=== PATIENT | female | born 1970 | race Caucasian/White ===

== ENCOUNTER 2016-10-14 12:48 | Emergency (ER) | payer BC, OTHER ==
[~2016-10-14] VITALS: Ht 165.1 cm; Wt 124.7 kg
[~2016-10-14 12:48] MED LIST: ACETAMINOPHEN-120 ML PO; ALDACTONE100 MG PO; AMBEREN PO; APAP/CODEINE ELI5 M1 PO; ASPIRIN325; AUGMENTIN 875875 M1 PO; B-100 COMPLEX100 MG PO; BACTRIM DS TAB1 EACH PO; CIPROFLOXACIN500 M1 PO; CYANOCOBALAMIN PO; DESYREL50 MG PO; DULCOLAX5 MG PO; ESTRACE0.5 MG PO; FLEXERIL PO; HYALURONIC ACI1 EACH PO; HYDROCODON-ACE1 EAC7 PO; IBUPROFEN 800800 M1 PO; IBUPROFEN200 M2 PO; KEFLEX500 MG PO; LORTAB 5-500 T1 EAC1 PO; MACROBID 100 M100 M1 PO; MULTIVITAMINS PO; NAPROSYN500 MG PO; NOHOMEMEDICATIONS; NORCO 5-325 TA1 EACH PO; PHENERGAN 25 MG25 M1 PO; PHENERGAN 25 MG25 MG PO; PRILOSEC40 MG PO; PROMETHAZINE-C120 ML PO; PROMETHEGAN25 MG RECTAL; PROVENTIL HFA6.7 G1 INH; SELENIUM PO; SENNA S TABLET1 EACH PO; ULTRAM 50MG TAB50 MG PO; VALIUM2 MG PO; VALIUM5 MG PO; ZOFRAN ODT4 MG PO; ZOFRAN4 MG PO; ZPAK PO
[2016-10-14] MEDS ORDERED: LISINOPRIL-HCT1 EACH PO (13:20)
[2016-10-14] MEDS ORDERED: VITAMIN D 5050000 I1 PO (13:21)
[2016-10-14 13:42] LABS: ABSOLUTE NEUTROPHILS 5.2 thou/uL (1.4-8.2); BASOPHILS 0.6 % (0.0-2.0); HEMATOCRIT 36.1 % (37.0-47.0); HEMOGLOBIN 12.6 gm/dL (12.0-15.0); LYMPHOCYTES 25.1 % (24.0-44.0); MCH 31.1 pg (26.0-34.0); MCV 88.9 fL (80.0-100.0); MONOCYTES 8.2 % (1.0-8.0); PLATELET COUNT 170 thou/uL (150-400); POLYS 64.1 % (36.0-66.0); RBC 4.06 mil/uL (4.20-5.00); RDW 12.7 % (10.5-14.5); WBC 8.1 thou/uL (4.0-11.0)
[2016-10-14 13:43] LABS: MANUAL DIFF NO
[2016-10-14 13:50] LABS: CALCIUM 8.7 mg/dL (8.5-10.1); CREATININE 0.8 mg/dL (0.6-1.3); POTASSIUM 4.3 mmol/L (3.5-5.1)
[2016-10-14] MEDS ORDERED: BLEPH-105 ML OPHTHALMIC (14:49)
== END 2016-10-14 15:45 | disposition home or self-care (01) ==
LOC: ER 12:48
PROVIDERS: Physician Assistant
DX: G44.209 Tension-type headache, unspecified, not intractable (principal); H10.89 Other conjunctivitis; E86.0 Dehydration; J02.0 Streptococcal pharyngitis; Z90.710 Acquired absence of both cervix and uterus; Z90.49 Acquired absence of other specified parts of digestive tract; Z98.890 Other specified postprocedural states; Z88.7 Allergy status to serum and vaccine; Z88.6 Allergy status to analgesic agent; Z88.8 Allergy status to other drugs, medicaments and biological substances; F10.99 Alcohol use, unspecified with unspecified alcohol-induced disorder

== ENCOUNTER 2016-12-05 19:46 | Emergency (ER) | payer BC ==
[~2016-12-05] VITALS: Ht 165.1 cm; Wt 127.0 kg
[~2016-12-05 19:46] MED LIST changes: +BLEPH-105 ML OPHTHALMIC; +LISINOPRIL-HCT1 EACH PO; +VITAMIN D 5050000 I1 PO
[2016-12-05 20:30] LABS: URINE BILIRUBIN NEGATIVE (Negative); URINE BLOOD TRACE (Negative); URINE COLOR YELLOW; URINE GLUCOSE-RANDOM* NEGATIVE (Negative); URINE KETONES NEGATIVE (Negative); URINE LEUKOCYTES-REFLEX 3+ (Negative); URINE PROTEIN (DIPSTICK) NEGATIVE (Negative); URINE UROBILINOGEN 0.2 E.U./dl (0.2-1.0)
[2016-12-05 20:38] LABS: CASTS None Seen /LPF (None Seen); CRYSTALS None Seen /LPF (None Seen); SQUAMOUS 4-10 Moderate /LPF (0-3); YEAST-REFLEX Present (None Seen)
[2016-12-05 20:39] LABS: URINE RBC 0-2 Rare /HPF (0-2); URINE WBC-REFLEX 6-15 Few /HPF (0-5)
[2016-12-05 20:51] LABS: ABSOLUTE NEUTROPHILS 2.9 thou/uL (1.4-8.2); BASOPHILS 0.7 % (0.0-2.0); EOSINOPHILS 3.8 % (0.0-3.0); HEMATOCRIT 39.1 % (37.0-47.0); HEMOGLOBIN 13.6 gm/dL (12.0-15.0); MCH 31.4 pg (26.0-34.0); MCHC 34.8 g/dL (28.0-37.0); MCV 90.2 fL (80.0-100.0); MONOCYTES 7.9 % (1.0-8.0); PLATELET COUNT 183 thou/uL (150-400); POLYS 43.6 % (36.0-66.0); RBC 4.34 mil/uL (4.20-5.00); RDW 13.3 % (10.5-14.5); WBC 6.7 thou/uL (4.0-11.0)
[2016-12-05 20:55] LABS: MANUAL DIFF NO
[2016-12-05 21:02] LABS: CALCIUM 9.1 mg/dL (8.5-10.1); CREATININE 0.6 mg/dL (0.6-1.0); POTASSIUM 3.9 mmol/L (3.5-5.1)
[2016-12-05 21:06] LABS: ALBUMIN 3.7 g/dL (3.4-5.0); TOTAL BILIRUBIN 0.3 mg/dL (<0.1-1.0); TOTAL PROTEIN 7.3 g/dL (6.4-8.2)
[2016-12-05] MEDS ORDERED: NORCO 5-325 TA1 EACH PO (21:36)
[2016-12-05] MEDS ORDERED: ZOFRAN ODT8 MG PO (21:36)
[2016-12-05] MEDS ORDERED: LEVSIN0.125 MG PO (21:36)
[2016-12-05] MEDS ORDERED: MACROBID 100 M100 M1 PO (22:03)
== END 2016-12-06 00:22 | disposition home or self-care (01) ==
LOC: ER 19:46
PROVIDERS: Emergency Medicine
DX: N39.0 Urinary tract infection, site not specified (principal); R11.2 Nausea with vomiting, unspecified; R19.7 Diarrhea, unspecified; F10.99 Alcohol use, unspecified with unspecified alcohol-induced disorder; Z90.710 Acquired absence of both cervix and uterus; Z90.49 Acquired absence of other specified parts of digestive tract; Z90.721 Acquired absence of ovaries, unilateral; Z88.6 Allergy status to analgesic agent; Z88.7 Allergy status to serum and vaccine; Z88.8 Allergy status to other drugs, medicaments and biological substances